=== PATIENT | male | born 1945 | race Caucasian/White ===

== ENCOUNTER 2021-06-25 22:45 | Emergency (ER) | payer OTHER, SELFPAY ==
[~2021-06-25] VITALS: Ht 188 cm; Wt 86.2 kg
[~2021-06-25 22:45] MED LIST: THYR48.7 PO
[2021-06-25 22:50] VITALS: BP_SYST 126
--- NOTE | 2021-06-26 00:15 | NUR ---
Placed in room 4 . Placed on classroom monitor, blood pressure machine and pulse oximeter. To gown for exam. Side rails up. Report given to Xin LUNA.
--- NOTE | 2021-06-26 00:23 | NUR ---
PT BIB AMBULANCE BLS C/O LEG PAIN FOR A FEW DAYS
--- NOTE | 2021-06-26 00:52 | NUR ---
PT LEG PAIN RT ANKLE AREA ;PT SAME FOR ON AND OFF FOR 6 YRS ; PT HAS BEEN SCRATCHING ANKLE AND CAUSING IT TO BLEED PT AMBULATORY TO BR ;HX RT KNEE REPLACEMENT YRS AGO
--- NOTE | 2021-06-26 01:09 | NUR ---
ER at bedside examining patient.
[2021-06-26] MEDS ORDERED: LIDOCAINE/EPI 2% 1:100000 20 ML VIAL INJ ONE (01:45)
--- NOTE | 2021-06-26 02:07 | NUR ---
DR LISA T BEDSIDE TO SUTURE ANKLE WOUND
--- NOTE | 2021-06-26 02:21 | NUR ---
FRANCISCO 4X4 GAUZE AND WES WRAP TO RT ANKLE ORDERED IV CANCELED PER DR LISA
[2021-06-26 02:23] VITALS: BP_SYST 102
--- NOTE | 2021-06-26 03:30 | NUR ---
DR LISA TO REVIEW DISCHG INSTRUCTIONS AGAIN WITH PT
--- NOTE | 2021-06-26 04:30 | NUR ---
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
--- NOTE | 2021-06-26 06:10 | NUR ---
[facility] HERE FOR PT TO TRANSPORT TO HOME PT STABLE
== END 2021-06-26 06:10 | disposition home or self-care (01) ==
LOC: SED 22:45
DX: I83.891 Varicose veins of right lower extremity with other complications (principal); I10 Essential (primary) hypertension; I25.2 Old myocardial infarction; E03.9 Hypothyroidism, unspecified
CPT/HCPCS: 99283; 99284